=== PATIENT | female | born 1975 | race Caucasian/White ===

== ENCOUNTER 2020-12-29 09:11 | Emergency (ER) | payer OTHER, SELFPAY ==
[~2020-12-29] VITALS: Ht 165.1 cm; Wt 73.9 kg
--- NOTE | 2020-12-29 09:11 | NUR ---
CALLED FOR TRIAGE, UNABLE TO LOCATE PT.
[2020-12-29 09:42] VITALS: BP_SYST 118
--- NOTE | 2020-12-29 09:42 | NUR ---
BROUGHT OUT TO TRIAGE TENT AND TRIAGED. AWAITING ER BED.
--- NOTE | 2020-12-29 10:34 | NUR ---
BROUGHT IN TO BED #5 AND REPORT GIVEN TO THOMAS
--- NOTE | 2020-12-29 11:00 | NUR ---
DR LOPEZ IN TO ASSESS
[2020-12-29 11:17] LABS: BASOPHILS % (AUTO) 0.2 % (0.0-2.0); HEMATOCRIT 40.2 % (36-48); LYMPHOCYTES # (AUTO) 0.8 K/uL (1.0-5.5); LYMPHOCYTES % (AUTO) 11.2 % (20.5-51.5); MEAN CORPUSCULAR HEMOGLOBIN 31 pg (27-31); MEAN CORPUSCULAR HGB CONC 35 % (32-36); MEAN CORPUSCULAR VOLUME 88 fL (79.0-98.0); MONOCYTES # (AUTO) 0.7 K/uL (0.0-1.0); MONOCYTES % (AUTO) 9.2 % (1.7-9.3); NEUTROPHILS # (AUTO) 5.8 K/uL (1.8-7.7); NEUTROPHILS % (AUTO) 79.4 % (40.0-70.0); PLATELET COUNT (AUTO) 136 K/uL (130-430); RED BLOOD CELL COUNT(AUTO) 4.55 MIL/uL (4.2-6.2); RED CELL DISTRIBUTION WIDTH 13.5 % (9.0-15.0); WHITE BLOOD COUNT (AUTO) 7.3 K/uL (4.8-10.8)
[2020-12-29] MEDS ORDERED: ACETAMINOPHEN 500 MG TABLET PO ONE (11:30)
[2020-12-29 11:33] LABS: BILIRUBIN,URINE NEGATIVE (NEGATIVE); BLOOD, URINE 2+ (NEGATIVE); CLARITY/URINE CLOUDY (CLEAR); COLOR,URINE YELLOW (YELLOW); GLUCOSE,URINE NEGATIVE (NEGATIVE); KETONES,URINE NEGATIVE (NEGATIVE); LEUKOCYTE ESTERASE ,URINE 3+ (NEGATIVE); NITRITE, URINE POSITIVE (NEGATIVE); PH,URINE 7.5 (5.0-8.0); PROTEIN URINE 1+ (NEGATIVE); UROBILINOGEN,URINE 0.2 (0.2-1.0)
--- NOTE | 2020-12-29 11:40 | NUR ---
C/O DYSURIA FEVER, RT FLANK PAIN, HX OF UTI AND UROLOGY SURGERIES
[2020-12-29 11:56] LABS: CREATININE 1.08 mg/dL (0.55-1.30); POTASSIUM 3.7 mmol/L (3.5-5.1)
[2020-12-29 11:57] LABS: RBC,URINE 20-50 /HPF (0-3); WBC,URINE >100 /HPF (0-3)
[2020-12-29 11:57] LABS: INR 0.9 (0.8-1.2); PROTHROMBIN TIME 10.1 SECS (9.5-12.5)
[2020-12-29 11:58] LABS: BACTERIA,URINE MANY /HPF (None Seen)
[2020-12-29 11:59] LABS: TOTAL BILIRUBIN 0.5 mg/dL (0.0-1.0)
--- NOTE | 2020-12-29 12:50 | NUR ---
SITTING UP , ALERT, RESP UNLABORED, SKIN WARM AND DRY. COMMINCATES CLEARLY
[2020-12-29] MEDS ORDERED: cefTRIAXone 2 GM VIAL ONE (12:57)
--- NOTE | 2020-12-29 13:41 | NUR ---
AMBULATING STEADY TO BATHRROM , STEADY GAIT, NO DYSPNEA
[2020-12-29] MEDS ORDERED: NACL 0.9% 1,000 ML IV ONE (14:15)
--- NOTE | 2020-12-29 14:33 | NUR ---
CALM, ALERT, CEAR MENTATION AND SPEECH, SKIN WARM AND DRY. NO COMPLAINTS
[2020-12-29 15:28] VITALS: BP_SYST 105
--- NOTE | 2020-12-29 15:28 | NUR ---
DR JARQUIN AT BEDSIDE
[2020-12-29] MEDS ORDERED: HYDR-3917 PO (15:32)
[2020-12-29] MEDS ORDERED: NITR-85 PO (15:32)
--- NOTE | 2020-12-29 15:55 | NUR ---
Patient given written and verbal discharge instructions and verbalizes understanding. ER MD discussed with patient the results and treatment provided. Patient in stable condition. ID arm band removed. IV catheter removed intact and dressing applied, no active bleeding. Rx of MACROBID given. Patient educated on pain management and to follow up with PMD. Pain Scale 0/10 Opportunity for questions provided and answered. Medication side effect fact sheet provided.
--- NOTE | 2020-12-31 16:30 | NUR ---
MICRO BIO RESULT POSITIVE FOR E. COLI IN THE URINE. PT DC'D W/ MICROBID.
== END 2020-12-29 15:53 | disposition home or self-care (01) ==
LOC: SED 09:11
DX: N12 Tubulo-interstitial nephritis, not specified as acute or chronic (principal); Z79.899 Other long term (current) drug therapy
CPT/HCPCS: 36415; 71045; 76770; 80053; 81000; 84484; 84702; 85025; 85610; 85730; 87040; 87086; 93005; 96361; 96365; 99285; J0696; J7030; 83605

== ENCOUNTER 2021-01-25 22:07 | Inpatient (IN) | payer OTHER, SELFPAY ==
[~2021-01-25] VITALS: Ht 165.1 cm; Wt 73.5 kg
[~2021-01-25 22:07] MED LIST: HYDR-3917 PO; NITR-85 PO
[2021-01-25 22:20] VITALS: BP_SYST 112
[2021-01-25] MEDS ORDERED: NACL 0.9% 1,000 ML IV ONE (22:30)
[2021-01-25] MEDS ORDERED: cefTRIAXone 1 GM IVPB PREMIX 50 ML IV ONE (22:30)
[2021-01-25] MEDS ORDERED: KETOROLAC TROMETHAMINE 30 MG VIAL ONE (22:52)
[2021-01-25] MEDS ORDERED: KETOROLAC TROMETHAMINE 30 MG VIAL IVP ONE (23:00)
[2021-01-25 23:26] LABS: BILIRUBIN,URINE NEGATIVE (NEGATIVE); BLOOD, URINE 2+ (NEGATIVE); CLARITY/URINE CLOUDY (CLEAR); COLOR,URINE YELLOW (YELLOW); GLUCOSE,URINE TRACE (NEGATIVE); KETONES,URINE NEGATIVE (NEGATIVE); LEUKOCYTE ESTERASE ,URINE 2+ (NEGATIVE); NITRITE, URINE NEGATIVE (NEGATIVE); PROTEIN URINE 1+ (NEGATIVE)
[2021-01-25 23:34] LABS: BASOPHILS % (AUTO) 0.2 % (0.0-2.0); CALCIUM 8.2 mg/dL (8.4-11.0); HEMATOCRIT 37.4 % (36-48); HEMOGLOBIN 13.1 g/dL (12.0-16.0); LYMPHOCYTES # (AUTO) 0.8 K/uL (1.0-5.5); LYMPHOCYTES % (AUTO) 7.7 % (20.5-51.5); MEAN CORPUSCULAR HEMOGLOBIN 31 pg (27-31); MEAN CORPUSCULAR HGB CONC 35 % (32-36); MEAN CORPUSCULAR VOLUME 88 fL (79.0-98.0); MONOCYTES % (AUTO) 9.6 % (1.7-9.3); NEUTROPHILS # (AUTO) 8.8 K/uL (1.8-7.7); NEUTROPHILS % (AUTO) 82.5 % (40.0-70.0); PLATELET COUNT (AUTO) 135 K/uL (130-430); POTASSIUM 3.7 mmol/L (3.5-5.1); RED BLOOD CELL COUNT(AUTO) 4.26 MIL/uL (4.2-6.2); RED CELL DISTRIBUTION WIDTH 13.3 % (9.0-15.0); WHITE BLOOD COUNT (AUTO) 10.7 K/uL (4.8-10.8)
[2021-01-25 23:35] LABS: BACTERIA,URINE MANY /HPF (None Seen); RBC,URINE 20-50 /HPF (0-3); WBC,URINE 50-80 /HPF (0-3)
[2021-01-25 23:45] LABS: ALBUMIN 3.7 g/dL (3.4-4.8); TOTAL BILIRUBIN 0.6 mg/dL (0.0-1.0)
[2021-01-26] MEDS ORDERED: IBUPROFEN 800 MG TABLET PO ONE ×2 (00:15→13:00)
[2021-01-26] MEDS ORDERED: NACL 0.9% 1,000 ML IV ONE ×2 (00:15→04:45)
[2021-01-26] MEDS ORDERED: ACETAMINOPHEN 500 MG TABLET PO ONE (00:15)
[2021-01-26 03:43] VITALS: BP_SYST 75; BP_SYST 89
[2021-01-26] MEDS: NACL 0.9% 1,000 ML IV SCH ×3 (04:24→16:05)
[2021-01-26 05:36] VITALS: BP_SYST 91
[2021-01-26 08:08] VITALS: BP_SYST 97
[2021-01-26] MEDS ORDERED: MUPIROCIN 2% TOPICAL OINTMENT 22 GM NS PRN (08:15)
[2021-01-26] MEDS ORDERED: ZOLPIDEM TARTRATE 5 MG TABLET PO PRN (08:15)
[2021-01-26] MEDS ORDERED: MAGNESIUM SULFATE 50 ML IV PRN (08:15)
[2021-01-26] MEDS ORDERED: LORazepam 2 MG/ML VIAL IVP PRN (08:15)
[2021-01-26] MEDS ORDERED: POTASSIUM CHLORIDE 20 MEQ TAB.PRT.SR PO PRN (08:15)
[2021-01-26] MEDS ORDERED: DOCUSATE SODIUM 100 MG CAPSULE PO PRN (08:15)
[2021-01-26] MEDS ORDERED: ACETAMINOPHEN 325 MG TABLET PO PRN (08:15)
[2021-01-26] MEDS ORDERED: ACETAMINOPHEN 325 MG TABLET PO ONE (11:00)
[2021-01-26] MEDS: ONDANSETRON HCL 4 MG/2 ML VIAL IVP PRN (11:25)
[2021-01-26 12:12] VITALS: BP_SYST 108
[2021-01-26] MEDS ORDERED: MORPHINE 2 MG/ML INJ. SYRINGE IVP PRN (13:00)
[2021-01-26] MEDS ORDERED: NALOXONE HCL 0.4 MG/ML AMP (NARCAN) IVP PRN (13:00)
[2021-01-26] MEDS ORDERED: metroNIDAZOLE 500 mg/NS 100 ML IV SCH (14:00)
[2021-01-26 15:22] LABS: HEMATOCRIT 33.1 % (36-48); HEMOGLOBIN 11.5 g/dL (12.0-16.0); LYMPHOCYTES # (AUTO) 0.7 K/uL (1.0-5.5); LYMPHOCYTES % (AUTO) 7.7 % (20.5-51.5); MEAN CORPUSCULAR HEMOGLOBIN 31 pg (27-31); MEAN CORPUSCULAR HGB CONC 35 % (32-36); MEAN CORPUSCULAR VOLUME 89 fL (79.0-98.0); MONOCYTES # (AUTO) 0.9 K/uL (0.0-1.0); MONOCYTES % (AUTO) 9.5 % (1.7-9.3); NEUTROPHILS # (AUTO) 7.7 K/uL (1.8-7.7); NEUTROPHILS % (AUTO) 82.8 % (40.0-70.0); PLATELET COUNT (AUTO) 106 K/uL (130-430); RED BLOOD CELL COUNT(AUTO) 3.72 MIL/uL (4.2-6.2); RED CELL DISTRIBUTION WIDTH 13.8 % (9.0-15.0); WHITE BLOOD COUNT (AUTO) 9.3 K/uL (4.8-10.8)
[2021-01-26 18:02] LABS: INR 1.1 (0.8-1.2); PROTHROMBIN TIME 11.5 SECS (9.5-12.5)
[2021-01-26] MEDS: ACETAMINOPHEN 325 MG TABLET PO PRN (18:28)
[2021-01-26 19:27] VITALS: BP_SYST 110
[2021-01-26 20:55] VITALS: BP_SYST 88
[2021-01-26] MEDS ORDERED: cefTRIAXone 1 GM IVPB PREMIX 50 ML IV SCH (21:00)
[2021-01-26] MEDS: PIPERACILLIN/TAZO 4.5GM/DEX-IS 100 ML IV SCH (21:07)
[2021-01-26 23:01] LABS: HCG,QUAL RESULT NEGATIVE (NEGATIVE)
[2021-01-27 01:00] VITALS: BP_SYST 112
[2021-01-27 05:00] VITALS: BP_SYST 115
[2021-01-27] MEDS: NACL 0.9% 1,000 ML IV SCH ×4 (05:25→21:23)
[2021-01-27] MEDS: ACETAMINOPHEN 325 MG TABLET PO PRN ×2 (05:30→22:15)
[2021-01-27] MEDS: PIPERACILLIN/TAZO 4.5GM/DEX-IS 100 ML IV SCH ×3 (05:33→21:21)
[2021-01-27] MEDS: ONDANSETRON HCL 4 MG/2 ML VIAL IVP PRN (06:18)
[2021-01-27 06:41] LABS: BASOPHILS % (AUTO) 0.1 % (0.0-2.0); EOSINOPHILS % (AUTO) 0.2 % (0.0-4.0); HEMATOCRIT 34.8 % (36-48); LYMPHOCYTES # (AUTO) 0.8 K/uL (1.0-5.5); MEAN CORPUSCULAR HEMOGLOBIN 31 pg (27-31); MEAN CORPUSCULAR HGB CONC 35 % (32-36); MEAN CORPUSCULAR VOLUME 89 fL (79.0-98.0); MONOCYTES # (AUTO) 0.8 K/uL (0.0-1.0); MONOCYTES % (AUTO) 9.9 % (1.7-9.3); NEUTROPHILS # (AUTO) 6.9 K/uL (1.8-7.7); NEUTROPHILS % (AUTO) 80.8 % (40.0-70.0); PLATELET COUNT (AUTO) 96 K/uL (130-430); RED BLOOD CELL COUNT(AUTO) 3.89 MIL/uL (4.2-6.2); RED CELL DISTRIBUTION WIDTH 13.6 % (9.0-15.0); WHITE BLOOD COUNT (AUTO) 8.5 K/uL (4.8-10.8)
[2021-01-27 06:49] LABS: CALCIUM 7.8 mg/dL (8.4-11.0); CREATININE 0.79 mg/dL (0.55-1.30); POTASSIUM 3.3 mmol/L (3.5-5.1)
[2021-01-27] MEDS: MELOXICAM 7.5 MG TABLET PO SCH (09:15)
[2021-01-27 09:23] VITALS: BP_SYST 123
[2021-01-27 13:38] VITALS: BP_SYST 114
[2021-01-27] MEDS: GENTAMICIN SULFATE 400 MG in NS 100 ML IV SCH (13:52)
[2021-01-27 17:57] VITALS: BP_SYST 118
[2021-01-27 20:00] VITALS: BP_SYST 107
[2021-01-28 00:38] VITALS: BP_SYST 104
[2021-01-28 04:22] LABS: CALCIUM 7.6 mg/dL (8.4-11.0); CREATININE 0.73 mg/dL (0.55-1.30); POTASSIUM 3.6 mmol/L (3.5-5.1)
[2021-01-28 04:48] LABS: BASOPHILS % (AUTO) 0.3 % (0.0-2.0); EOSINOPHILS % (AUTO) 0.6 % (0.0-4.0); HEMOGLOBIN 10.4 g/dL (12.0-16.0); LYMPHOCYTES # (AUTO) 1.4 K/uL (1.0-5.5); LYMPHOCYTES % (AUTO) 20.3 % (20.5-51.5); MEAN CORPUSCULAR HEMOGLOBIN 31 pg (27-31); MEAN CORPUSCULAR HGB CONC 35 % (32-36); MEAN CORPUSCULAR VOLUME 89 fL (79.0-98.0); MONOCYTES # (AUTO) 0.9 K/uL (0.0-1.0); MONOCYTES % (AUTO) 12.4 % (1.7-9.3); NEUTROPHILS # (AUTO) 4.6 K/uL (1.8-7.7); NEUTROPHILS % (AUTO) 66.4 % (40.0-70.0); PLATELET COUNT (AUTO) 94 K/uL (130-430); RED BLOOD CELL COUNT(AUTO) 3.37 MIL/uL (4.2-6.2); RED CELL DISTRIBUTION WIDTH 13.6 % (9.0-15.0); WHITE BLOOD COUNT (AUTO) 6.9 K/uL (4.8-10.8)
[2021-01-28] MEDS: PIPERACILLIN/TAZO 4.5GM/DEX-IS 100 ML IV SCH ×3 (05:16→21:26)
[2021-01-28] MEDS: NACL 0.9% 1,000 ML IV SCH ×4 (05:18→21:26)
[2021-01-28 08:18] VITALS: BP_SYST 108
[2021-01-28] MEDS: MELOXICAM 7.5 MG TABLET PO SCH (09:29)
[2021-01-28 11:24] VITALS: BP_SYST 108
[2021-01-28] MEDS: GENTAMICIN SULFATE 400 MG in NS 100 ML IV SCH (12:04)
[2021-01-28 15:47] VITALS: BP_SYST 102
[2021-01-28 20:00] VITALS: BP_SYST 114
[2021-01-29] VITALS: BP_SYST 118
[2021-01-29] MEDS: PIPERACILLIN/TAZO 4.5GM/DEX-IS 100 ML IV SCH (05:20)
[2021-01-29] MEDS: NACL 0.9% 1,000 ML IV SCH ×4 (05:20→22:25)
[2021-01-29 07:45] LABS: BASOPHILS % (AUTO) 0.4 % (0.0-2.0); EOSINOPHILS # (AUTO) 0.1 K/uL (0.0-0.4); HEMATOCRIT 35.1 % (36-48); HEMOGLOBIN 12.1 g/dL (12.0-16.0); LYMPHOCYTES # (AUTO) 1.3 K/uL (1.0-5.5); LYMPHOCYTES % (AUTO) 23.1 % (20.5-51.5); MEAN CORPUSCULAR HEMOGLOBIN 31 pg (27-31); MEAN CORPUSCULAR HGB CONC 35 % (32-36); MEAN CORPUSCULAR VOLUME 89 fL (79.0-98.0); MONOCYTES # (AUTO) 0.4 K/uL (0.0-1.0); MONOCYTES % (AUTO) 7.7 % (1.7-9.3); NEUTROPHILS # (AUTO) 3.9 K/uL (1.8-7.7); NEUTROPHILS % (AUTO) 67.8 % (40.0-70.0); PLATELET COUNT (AUTO) 168 K/uL (130-430); RED BLOOD CELL COUNT(AUTO) 3.96 MIL/uL (4.2-6.2); RED CELL DISTRIBUTION WIDTH 13.8 % (9.0-15.0); WHITE BLOOD COUNT (AUTO) 5.7 K/uL (4.8-10.8)
[2021-01-29 08:15] VITALS: BP_SYST 109
[2021-01-29] MEDS: MELOXICAM 7.5 MG TABLET PO SCH (08:52)
[2021-01-29 09:08] LABS: CALCIUM 8.5 mg/dL (8.4-11.0); CREATININE 0.81 mg/dL (0.55-1.30); POTASSIUM 3.9 mmol/L (3.5-5.1)
[2021-01-29 12:00] VITALS: BP_SYST 113
[2021-01-29] MEDS: GENTAMICIN SULFATE 400 MG in NS 100 ML IV SCH (14:26)
[2021-01-29 16:25] VITALS: BP_SYST 90
[2021-01-29 20:00] VITALS: BP_SYST 117
[2021-01-30] VITALS: BP_SYST 109
[2021-01-30] MEDS: NACL 0.9% 1,000 ML IV SCH ×2 (04:56→11:34)
[2021-01-30 07:34] LABS: BASOPHILS % (AUTO) 0.4 % (0.0-2.0); EOSINOPHILS # (AUTO) 0.1 K/uL (0.0-0.4); EOSINOPHILS % (AUTO) 1.7 % (0.0-4.0); HEMATOCRIT 32.7 % (36-48); HEMOGLOBIN 11.3 g/dL (12.0-16.0); LYMPHOCYTES # (AUTO) 1.5 K/uL (1.0-5.5); LYMPHOCYTES % (AUTO) 29.2 % (20.5-51.5); MEAN CORPUSCULAR HEMOGLOBIN 30 pg (27-31); MEAN CORPUSCULAR HGB CONC 35 % (32-36); MEAN CORPUSCULAR VOLUME 88 fL (79.0-98.0); MONOCYTES # (AUTO) 0.4 K/uL (0.0-1.0); MONOCYTES % (AUTO) 7.8 % (1.7-9.3); NEUTROPHILS # (AUTO) 3.1 K/uL (1.8-7.7); NEUTROPHILS % (AUTO) 60.9 % (40.0-70.0); PLATELET COUNT (AUTO) 189 K/uL (130-430); RED BLOOD CELL COUNT(AUTO) 3.73 MIL/uL (4.2-6.2); RED CELL DISTRIBUTION WIDTH 13.5 % (9.0-15.0); WHITE BLOOD COUNT (AUTO) 5.1 K/uL (4.8-10.8)
[2021-01-30 08:10] VITALS: BP_SYST 105
[2021-01-30 08:53] LABS: CALCIUM 8.2 mg/dL (8.4-11.0); CREATININE 0.71 mg/dL (0.55-1.30); POTASSIUM 3.7 mmol/L (3.5-5.1)
[2021-01-30] MEDS: MELOXICAM 7.5 MG TABLET PO SCH (09:15)
[2021-01-30 12:00] VITALS: BP_SYST 105
[2021-01-30] MEDS ORDERED: SULF1TAB48 PO (12:25)
[2021-01-30] MEDS: GENTAMICIN SULFATE 400 MG in NS 100 ML IV SCH (12:56)
[2021-01-30 13:25] VITALS: BP_SYST 105
[2021-02-02] MEDS ORDERED: NITR-85 PO (12:15)
== END 2021-01-30 15:20 | disposition home or self-care (01) | DRG 872 ==
LOC: SED 22:07 → SMU 01-26 02:39 → STU 01-26 04:51 → OBSVTOIN 01-27 08:15 → SMU 01-28 08:49
PROVIDERS: ADMIT General Practice; ATTEND General Practice
DX: A41.9 Sepsis, unspecified organism (principal); N10 Acute pyelonephritis; E87.1 Hypo-osmolality and hyponatremia; N28.82 Megaloureter; Z20.822 Contact with and (suspected) exposure to COVID-19; Z90.710 Acquired absence of both cervix and uterus; Z87.440 Personal history of urinary (tract) infections
CPT/HCPCS: 36415; 76376; 80048; 80053; 80170; 81000; 83036; 83605; 83735; 84703; 85025; 85610-TC; 85651-TC; 85730-TC; 86140; 87040-TC; 87086; 96361; 96365; 96375; 99291; G0378; J0696; J1580; J1885; J2270; J2405; J2543; J3490; J7060

== ENCOUNTER 2021-11-25 21:59 | Emergency (ER) | payer OTHER ==
[~2021-11-25] VITALS: Ht 167.6 cm; Wt 73.5 kg
[~2021-11-25 21:59] MED LIST changes: -HYDR-3917 PO; +SULF1TAB48 PO
--- NOTE | 2021-11-25 22:04 | NUR ---
Pt to ER w/ c/o RUQ / right flank pain 7/10 w/ dysuria. Denies vomiting, yet nauseous. Pt states she has had chills with NO fever. Ambulates with strong steady gait. Normal skin color for ethnicity.
[2021-11-25 22:05] VITALS: BP_SYST 124
[2021-11-25 22:40] LABS: BILIRUBIN,URINE NEGATIVE (NEGATIVE); BLOOD, URINE 3+ (NEGATIVE); CLARITY/URINE CLOUDY (CLEAR); COLOR,URINE YELLOW (YELLOW); GLUCOSE,URINE NEGATIVE (NEGATIVE); KETONES,URINE NEGATIVE (NEGATIVE); LEUKOCYTE ESTERASE ,URINE 3+ (NEGATIVE); NITRITE, URINE NEGATIVE (NEGATIVE); PROTEIN URINE NEGATIVE (NEGATIVE); UROBILINOGEN,URINE 0.2 (0.2-1.0)
--- NOTE | 2021-11-25 22:40 | NUR ---
Urine walked to lab at this time
[2021-11-25 23:03] LABS: BACTERIA,URINE MANY /HPF (None Seen); WBC,URINE 20-50 /HPF (0-3)
--- NOTE | 2021-11-26 01:08 | NUR ---
PT BIB HERSELF IN PRIVATE VEHICLE PRESENTED WITH COMPLAINT OF RLQ PAIN AND RIGHT FLANK PAIN WITH A PAIN LEVEL OF 7/10/. ISSUE BEGAN FOR PT YESTERDAY AFTERNOON.PT HAD URITER REATTACHMENT ABOUT 1 YR AGO, PT STATED SINCE SURGERY SHE EXPIRIENCES KIDNEY AND UTI INFECTIONS. PT IS IN BED WITH BED LOWERED, LOCKED AND RAILS UP. PT IS HAVING BLOOD DRAWN BY [employer]ER AT BEDSIDE, WILL CONTINUE TO MONITOR. VS ARE WITHIN NORMAL LIMITS
--- NOTE | 2021-11-26 01:41 | NUR ---
DR CRAIN AT PT BED SIDE
[2021-11-26] MEDS ORDERED: NACL 0.9% 1,000 ML IV ONE (01:45)
[2021-11-26] MEDS ORDERED: ONDANSETRON HCL 4 MG/2 ML VIAL IVP ONE (01:45)
[2021-11-26 02:01] LABS: CALCIUM 8.7 mg/dL (8.4-11.0); CREATININE 0.82 mg/dL (0.55-1.30); POTASSIUM 3.7 mmol/L (3.5-5.1)
[2021-11-26 02:06] LABS: ALBUMIN 3.6 g/dL (3.4-4.8); TOTAL BILIRUBIN 0.4 mg/dL (0.0-1.0)
[2021-11-26 02:17] LABS: BASOPHILS % (AUTO) 0.3 % (0.0-2.0); EOSINOPHILS # (AUTO) 0.1 K/uL (0.0-0.4); EOSINOPHILS % (AUTO) 0.8 % (0.0-4.0); HEMATOCRIT 37.4 % (36-48); HEMOGLOBIN 12.9 g/dL (12.0-16.0); LYMPHOCYTES # (AUTO) 1.7 K/uL (1.0-5.5); LYMPHOCYTES % (AUTO) 22.7 % (20.5-51.5); MEAN CORPUSCULAR HEMOGLOBIN 31 pg (27-31); MEAN CORPUSCULAR HGB CONC 35 % (32-36); MEAN CORPUSCULAR VOLUME 89 fL (79.0-98.0); MONOCYTES # (AUTO) 0.7 K/uL (0.0-1.0); MONOCYTES % (AUTO) 8.8 % (1.7-9.3); NEUTROPHILS # (AUTO) 5.1 K/uL (1.8-7.7); NEUTROPHILS % (AUTO) 67.4 % (40.0-70.0); PLATELET COUNT (AUTO) 172 K/uL (130-430); RED CELL DISTRIBUTION WIDTH 13.3 % (9.0-15.0); WHITE BLOOD COUNT (AUTO) 7.6 K/uL (4.8-10.8)
[2021-11-26] MEDS ORDERED: KETOROLAC TROMETHAMINE 30 MG VIAL IVP ONE (03:30)
[2021-11-26] MEDS ORDERED: ACETAMINOPHEN 325 MG TABLET PO ONE (03:30)
[2021-11-26] MEDS ORDERED: PHENAZOPYRIDINE HCL 100 MG TABLET PO ONE (03:30)
[2021-11-26] MEDS ORDERED: MEROPENEM 1 GM IVPB PREMIX 50 ML IV ONE (04:15)
[2021-11-26] MEDS ORDERED: HYDR-3917 PO (04:27)
[2021-11-26] MEDS ORDERED: PHEN-727 PO (04:27)
[2021-11-26] MEDS ORDERED: SULF1TAB48 PO (04:27)
[2021-11-26 05:59] VITALS: BP_SYST 98
--- NOTE | 2021-11-26 06:01 | NUR ---
Patient given written and verbal discharge instructions and verbalizes understanding. ER DR PARAS WHITLOCK discussed with patient the results and treatment provided. Patient in stable condition. ID arm band removed. IV catheter removed intact and dressing applied, no active bleeding. Rx of NORCO, PYRIDIUM, BACTRIM given. Patient educated on pain management and to follow up with PMD. Pain Scale . Opportunity for questions provided and answered. Medication side effect fact sheet provided.
--- NOTE | 2021-11-28 16:56 | NUR ---
RECEIVED LAB REPORT URINE CULTURE FINAL: + E.COLI REVIEWED WITH ER DR MANNING. PT WAS DC'D WITH RX FOR MACROBID AND BACTRIM WHICH C&S CONFIRM SENSITIVITY TO ABX. NO FURTHER ACTION REQUIRED
== END 2021-11-26 06:01 | disposition home or self-care (01) ==
LOC: SED 21:59
DX: N10 Acute pyelonephritis (principal); R10.31 Right lower quadrant pain; R11.0 Nausea; R30.0 Dysuria; Z96.89 Presence of other specified functional implants; Z79.899 Other long term (current) drug therapy
CPT/HCPCS: 99284; 80053; 81000; 84703; 85025; 87086; 36415; 74176; 96365; 96375; 96361; 76376; J1885; J2405; J2185; J7030